=== PATIENT | female | born 1980 | race Caucasian/White ===

== ENCOUNTER 2017-01-20 09:32 | Emergency (ER) | payer OTHER ==
[~2017-01-20] VITALS: Ht 165.1 cm; Wt 82.0 kg
[2017-01-20] MEDS ORDERED: MORPHINE SULFATE 10 MG/ML CPJ IM ONE (11:00)
[2017-01-20] MEDS ORDERED: ONDANSETRON 4MG ODT PO ONE (11:00)
[2017-01-20] MEDS ORDERED: KETOROLAC 60MG/2ML VIAL IM ONE (12:45)
[2017-01-20 13:35] VITALS: BP 120/62
== END 2017-01-20 14:10 | disposition home or self-care (01) ==
LOC: ER 10:06
DX: M25.572 Pain in left ankle and joints of left foot (principal); M25.552 Pain in left hip; W18.30XA Fall on same level, unspecified, initial encounter; Y93.89 Activity, other specified; Y92.89 Other specified places as the place of occurrence of the external cause; Y99.8 Other external cause status
CPT/HCPCS: 73502; 73552; 73562; 73590; 73610; 73630; 96372; 99284; J1885; J2270; Q0162